=== PATIENT | female | born 1955 | race American Indian/Alaskan Native ===

== ENCOUNTER 2017-07-20 11:00 | Outpatient (CLI) | payer BC | END 2017-07-20 11:01 | disposition home or self-care (01) | LOC: SLR 11:00 | PROVIDERS: ATTEND Otolaryngology | DX: G47.30 Sleep apnea, unspecified (principal); R40.0 Somnolence; I10 Essential (primary) hypertension | CPT/HCPCS: G0399 ==

== ENCOUNTER 2019-05-18 08:11 | Day surgery (SDC) | payer BC ==
--- NOTE | 2019-05-18 09:01 | Ultrasound Report ---
ULTRASOUND SOFT TISSUE HEAD AND NECK HISTORY: Localized swelling, mass, lump in right neck region. TECHNIQUE: Grayscale ultrasound. FINDINGS: No comparisons at this facility. Targeted grayscale ultrasound was performed at the site of the palpa ble lesion in the right neck/upper right chest. This corresponds to a prominent sternoclavicular join t on the right side. Mild osteoarthritic changes are suspected. No suspicious mass or fluid collectio n. Ultrasound-guided FNA/biopsy was canceled. IMPRESSION: No suspicious mass. 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 See above. Signer Name: Job Andersen Jr, MD Signed: 05/18/2019 8:57 AM Workstation Name: [id number]
== END 2019-05-18 08:12 | disposition home or self-care (01) ==
LOC: CATHLABREC 08:11 → EDSTATUS 09:00
PROVIDERS: ATTEND Otolaryngology
DX: R22.1 Localized swelling, mass and lump, neck (principal)
CPT/HCPCS: 76536